=== PATIENT | male | born 1995 | race American Indian/Alaskan Native ===

== ENCOUNTER 2021-11-10 00:53 | Emergency (ER) | payer SELFPAY ==
[2021-11-10 01:22] VITALS: BP 135/88
[2021-11-10] MEDS ORDERED: IBUPROFEN 800 MG TAB PO ONE (02:25)
[2021-11-10] MEDS ORDERED: AMOXICILLIN 500 MG CAP PO ONE (02:25)
--- NOTE | 2021-11-10 03:07 | Emergency Department Report ---
ED ENT HPI - General Chief complaint: Dental/Oral Stated complaint: TOOTHACHE Time Seen by Provider: 11/10/21 02:24 Source: patient Mode of arrival: Ambulatory Limitations: No Limitations - History of Present Illness Initial comments: Patient 26-year-old male with history of dental caries who presents for dental pain x2 days. Pain is described as 7/10 aching sharp exacerbated by hot and cold stimuli. Patient is tolerating p.o. intake however there is no ear or throat pain. Is been no fevers no chills no facial or throat swelling. Patient has not seen dentist. MD complaint: tooth pain - Related Data Previous Rx's Medication Instructions Recorded Last Taken Type cephALEXin [Keflex] 500 mg PO Q12HR #10 cap 03/03/16 Unknown Rx Amoxicillin [Trimox CAP] 500 mg PO Q8H 7 Days #21 capsule 11/10/21 Unknown Rx Chlorhexidine Mouthwash [Peridex] 15 ml MM BID #1 bottle 11/10/21 Unknown Rx Ibuprofen [Motrin 800 MG tab] 800 mg PO Q8HR PRN #30 tablet 11/10/21 Unknown Rx Allergies Allergy/AdvReac Type Severity Reaction Status Date / Time No Known Allergies Allergy Verified 03/03/16 01:43 ED Dental HPI - General Chief complaint: Dental/Oral Stated complaint: TOOTHACHE Time Seen by Provider: 11/10/21 02:24 Source: patient Mode of arrival: Ambulatory Limitations: No Limitations - Related Data Previous Rx's Medication Instructions Recorded Last Taken Type cephALEXin [Keflex] 500 mg PO Q12HR #10 cap 03/03/16 Unknown Rx Amoxicillin [Trimox CAP] 500 mg PO Q8H 7 Days #21 capsule 11/10/21 Unknown Rx Chlorhexidine Mouthwash [Peridex] 15 ml MM BID #1 bottle 11/10/21 Unknown Rx Ibuprofen [Motrin 800 MG tab] 800 mg PO Q8HR PRN #30 tablet 11/10/21 Unknown Rx Allergies Allergy/AdvReac Type Severity Reaction Status Date / Time No Known Allergies Allergy Verified 03/03/16 01:43 ED Review of Systems ROS: Stated complaint: TOOTHACHE Other details as noted in HPI Constitutional: denies: chills, fever Eyes: denies: eye pain, eye discharge, vision change ENT: dental pain. denies: ear pain, throat pain Respiratory: denies: cough, shortness of breath, wheezing Cardiovascular: denies: chest pain, palpitations Endocrine: no symptoms reported Gastrointestinal: denies: abdominal pain, nausea, diarrhea Genitourinary: denies: urgency, dysuria Musculoskeletal: denies: back pain, joint swelling, arthralgia Skin: denies: rash, lesions Neurological: denies: headache, weakness, paresthesias Psychiatric: denies: anxiety, depression Hematological/Lymphatic: denies: easy bleeding, easy bruising ED Past Medical Hx - Past Medical History Previous Medical History?: No - Surgical History Past Surgical History?: Yes Additional Surgical History: right knee surgery - Social History Smoking Status: Current Every Day Smoker Substance Use Type: None - Medications Home Medications: Home Medications Medication Instructions Recorded Confirmed Last Taken Type cephALEXin [Keflex] 500 mg PO Q12HR #10 cap 03/03/16 Unknown Rx Amoxicillin [Trimox CAP] 500 mg PO Q8H 7 Days #21 capsule 11/10/21 Unknown Rx Chlorhexidine Mouthwash [Peridex] 15 ml MM BID #1 bottle 11/10/21 Unknown Rx Ibuprofen [Motrin 800 MG tab] 800 mg PO Q8HR PRN #30 tablet 11/10/21 Unknown Rx ED Physical Exam - General Limitations: No Limitations General appearance: alert, in no apparent distress - Head Head exam: Present: normocephalic, normal inspection - Eye Eye exam: Present: normal appearance, PERRL, EOMI Pupils: Present: normal accommodation - ENT ENT exam: Present: normal orophraynx, mucous membranes moist, TM's normal bilate rally, normal external ear exam - Expanded ENT Exam Expanded Mouth exam: Absent: trismus Teeth exam: Present: dental caries, dental tenderness # (31 mild gum erythema no swelling no facial swelling no focal abscess pharynx is patent no lesions no exudate no stridor no wheezing) Throat exam: Positive: normal inspection. Negative: tonsillar erythema, tonsillomegaly, tonsillar exudate, R peritonsillar mass, L peritonsillar mass - Neck Neck exam: Present: normal inspection, full ROM. Absent: tenderness, lymphadenopathy, thyromegaly - Respiratory Respiratory exam: Present: normal lung sounds bilaterally. Absent: respiratory distress, wheezes, stridor - Cardiovascular Cardiovascular Exam: Present: regular rate, normal rhythm, normal heart sounds. Absent: systolic murmur, diastolic murmur, rubs, gallop - GI/Abdominal GI/Abdominal exam: Present: soft, normal bowel sounds. Absent: distended, tenderness - Rectal Rectal exam: Present: deferred - Extremities Exam Extremities exam: Present: normal inspection, full ROM - Back Exam Back exam: Present: normal inspection, full ROM. Absent: tenderness - Neurological Exam Neurological exam: Present: alert, oriented X3 - Expanded Neurological Exam Expanded Patient oriented to: Present: person, place, time Best Eye Response (Falls [place] Rough): (4) open spontaneously Best Motor Response (Abi): (6) obeys commands Best Verbal Response (Abi): (5) oriented Falls Of Rough Total: 15 - Psychiatric Psychiatric exam: Present: normal affect, normal mood - Skin Skin exam: Present: warm, dry, intact, normal color. Absent: rash ED Course Vital Signs 11/10/21 11/10/21 01:17 02:56 Temperature 98.5 F Pulse Rate 98 H Respiratory 16 16 Rate Blood Pressure 135/88 [Right] O2 Sat by Pulse 100 Oximetry ED Medical Decision Making - Medical Decision Making This is a straightforward infected dental caries, plan antibiotics, NSAIDs as needed pain follow-up with dentist in 2 to 3 days. Patient given information packet reference dentist. There is no focal abscess no facial or gum swelling. Patient is tolerating p.o. intake there has been no fever no chills. Patient verbalized agreement and understanding of discharge plan. Critical care attestation.: If time is entered above; I have spent that time in minutes in the direct care of this critically ill patient, excluding procedure time. ED Disposition Clinical Impression: Infected dental caries Disposition: HOME / SELF CARE / HOMELESS Is pt being admited?: No Does the pt Need Aspirin: No Condition: Stable Instructions: Preventive Dental Care, Adult Additional Instructions: Take medications as prescribed, follow-up with your dentist in 2 to 3 days. Return to emergency department should symptoms worsen. Prescriptions: Ibuprofen [Motrin 800 MG tab] 800 mg PO Q8HR PRN #30 tablet PRN Reason: pain Chlorhexidine Mouthwash [Peridex] 15 ml MM BID #1 bottle Amoxicillin [Trimox CAP] 500 mg PO Q8H 7 Days #21 capsule Referrals: [facility] [Outside] - 3-5 Days Forms: Work/School Release Form(ED) Time of Disposition: 03:10
== END 2021-11-10 03:28 | disposition home or self-care (01) ==
LOC: ED 00:53
DX: K02.9 Dental caries, unspecified (principal); Z98.890 Other specified postprocedural states; F17.200 Nicotine dependence, unspecified, uncomplicated
CPT/HCPCS: 99282